=== PATIENT | female | born 1970 | race Caucasian/White ===

== ENCOUNTER 2017-12-14 11:53 | Emergency (ER) | payer OTHER ==
[~2017-12-14] VITALS: Ht 152.4 cm; Wt 81.8 kg
[2017-12-14 12:30] VITALS: BP 139/92
--- NOTE | 2017-12-14 12:36 | NUR ---
PT AMBULATED TO BED 3
--- NOTE | 2017-12-14 12:40 | NUR ---
47 YO F PATIENT BIB SELF PRESENTS TO ED WITH C/O COUGHING UP 2-3 OZ OF BRIGHT RED BLOOD. DENIES N/V/D; SKIN IS PINK/WARM/DRY; AAOX4 WITH EVEN AND STEADY GAIT; LUNGS CLEAR BL; HR EVEN AND REGULAR; PT DENIES ANY FEVER, CP, SOB, OR COUGH AT THIS TIME; PATIENT STATES PAIN OF 0/10 AT THIS TIME; VSS; PATIENT POSITIONED FOR COMFORT; HOB ELEVATED; BEDRAILS UP X2; BED DOWN. ER MD MADE AWARE OF PT STATUS.
[2017-12-14] MEDS ORDERED: NACL 0.9% 1,000 ML IV ONE (14:30)
[2017-12-14 16:56] VITALS: BP 139/92
--- NOTE | 2017-12-14 16:56 | NUR ---
Patient discharged with v/s stable. Written and verbal after care instructions given and explained. Patient verbalized understanding. Ambulatory with steady gait. All questions addressed prior to discharge. Advised to follow up with PMD.
== END 2017-12-14 16:56 | disposition home or self-care (01) ==
LOC: MED 11:53
DX: R04.2 Hemoptysis (principal); R22.2 Localized swelling, mass and lump, trunk; I10 Essential (primary) hypertension; Z88.5 Allergy status to narcotic agent; Z88.8 Allergy status to other drugs, medicaments and biological substances; Z90.49 Acquired absence of other specified parts of digestive tract
CPT/HCPCS: 71045; 71260; 81025; 96360; 99284; J7030; Q9967